=== PATIENT | female | born 1990 | race Caucasian/White ===

== ENCOUNTER 2018-09-04 14:24 | Emergency (ER) | payer OTHER ==
[~2018-09-04] VITALS: Ht 177.8 cm; Wt 81.7 kg
[~2018-09-04 14:24] MED LIST: DOXYCYCLINE 10100 MG PO; NOHOMEMEDICATIONS; TESSALON PERLE100 M1 PO; TESSALON PERLE100 MG PO; ZOFRAN 4 MG ORAL4 M1 DIS; ZPAK PO
[2018-09-04] MEDS ORDERED: PENICILLIN VK500 M1 PO ×2 (15:34→15:38)
[2018-09-04 16:00] VITALS: BP 105/74
== END 2018-09-04 15:55 | disposition home or self-care (01) ==
LOC: ER 14:24
DX: K05.10 Chronic gingivitis, plaque induced (principal); K08.89 Other specified disorders of teeth and supporting structures; J45.909 Unspecified asthma, uncomplicated; F17.210 Nicotine dependence, cigarettes, uncomplicated; Z86.711 Personal history of pulmonary embolism